=== PATIENT | male | born 1990 | race Caucasian/White ===

== ENCOUNTER 2017-05-14 20:49 | Emergency (ER) | payer MEDICAID ==
--- NOTE | 2017-05-14 21:27 | EDM.PDOC ---
ED HPI GENERAL MEDICAL PROBLEM - General Chief Complaint: Skin Complaint Stated Complaint: BOIL RIGHT THIGH Time Seen by Provider: 05/14/17 21:10 Source of Information: Reports: Patient History Limitations: Reports: No Limitations - History of Present Illness INITIAL COMMENTS - FREE TEXT/NARRATIVE: 26-year-old male who has a history of cutaneous MRSA has developed a painful reddened area on his right lateral upper thigh over the past 48 hours. No fevers or chills. No other complaints. Onset: Gradual (over the past 48 hours) Severity: Mild Associated Symptoms: Reports: No Other Symptoms Leg Pain Score (Numeric/FACES): 8 - Related Data Allergies Allergy/AdvReac Type Severity Reaction Status Date / Time Penicillins Allergy Difficulty Verified 05/14/17 21:20 Breathing Home Meds: Home Meds NK [No Known Home Meds] 05/14/17 [History] Past Medical History - Past Surgical History HEENT Surgical History: Reports: Oral Surgery Social & Family History - Tobacco Use Smoking Status *Q: Current Every Day Smoker Years of Tobacco use: 9 Packs/Tins Daily: 1 - Caffeine Use Caffeine Use: Reports: Coffee - Recreational Drug Use Recreational Drug Use: No ED ROS GENERAL - Review of Systems Review Of Systems: See Below Constitutional: Denies: Fever, Chills Respiratory: Denies: Shortness of Breath Cardiovascular: Denies: Chest Pain GI/Abdominal: Denies: Nausea, Vomiting Neurological: Reports: No Symptoms ED EXAM, SKIN/RASH Exam: See Below Exam Limited By: No Limitations General Appearance: Alert, No Apparent Distress Respiratory/Chest: No Respiratory Distress Extremities: Other (Exam is otherwise limited to the right lateral hip and lateral thigh. The patient has a slightly raised area, 3 cm across that is erythematous and tender to palpation and slightly warm. No significant fluctuance.) Course - Vital Signs Last Recorded V/S: Last Vital Signs Temp 97.2 F 05/14/17 21:24 Pulse 90 05/14/17 21:24 Resp 16 05/14/17 21:24 BP 146/82 H 05/14/17 21:24 Pulse Ox 96 05/14/17 21:24 - Re-Assessments/Exams Free Text/Narrative Re-Assessment/Exam: 05/14/17 21:26 This patient is developing a subcutaneous infection with overlying cellulitis. I don't feel it is at the point that it needs I&D and the patient wants to avoid it if possible. He'll be started on Bactrim DS twice daily, encouraged to apply warm compresses and return if worsening despite treatment. Anti- inflammatory such as ibuprofen or naproxen should help. Departure - Departure Time of Disposition: 21:54 Disposition: Home, Self-Care 01 Condition: Good Clinical Impression: Abscess - Discharge Information Instructions: Skin Abscess, [id number] Referrals: PCP,None [Primary Care Provider] - Forms: ED Department Discharge Care Plan Goals: Apply warm compresses to the area for the next couple of days and take the antibiotic every 12 hours for at least 7 days. Ibuprofen or naproxen should help as well, and return if worsening despite treatment.
== END 2017-05-14 21:54 | disposition home or self-care (01) ==
LOC: JP.ED 20:49
DX: L02.415 Cutaneous abscess of right lower limb (principal); F17.210 Nicotine dependence, cigarettes, uncomplicated; Z88.0 Allergy status to penicillin
CPT/HCPCS: 99283

== ENCOUNTER 2017-05-16 17:34 | Emergency (ER) | payer SELFPAY ==
[2017-05-16] MEDS ORDERED: HYDROmorphone 0.5 MG/0.5 ML Syringe IM ONE (18:22)
[2017-05-16] MEDS ORDERED: Lidocaine 1% 20 ML MDV INJECT ONE (18:23)
--- NOTE | 2017-05-16 18:26 | EDM.PDOC ---
ED HPI GENERAL MEDICAL PROBLEM - General Chief Complaint: Skin Complaint Stated Complaint: PAIN IN GROIN AREA Time Seen by Provider: 05/16/17 18:24 Source of Information: Reports: Patient History Limitations: Reports: No Limitations - History of Present Illness INITIAL COMMENTS - FREE TEXT/NARRATIVE: Pt arrived with increased redness and it appears to be coming to a head. Onset: Gradual, Other (Pt was seen earlier wby Dr Vogt. ) Duration: Hour(s): Location: Reports: Lower Extremity, Right Associated Symptoms: Reports: No Other Symptoms, Other (Pt is becoming quite uncomfortable with the increased inflamation. ) - Related Data Allergies Allergy/AdvReac Type Severity Reaction Status Date / Time Penicillins Allergy Difficulty Verified 05/14/17 21:20 Breathing Home Meds: Home Meds Sulfamethoxazole/Trimethoprim [Septra DS] 1 tab PO BID 05/16/17 [History] Past Medical History - Past Surgical History HEENT Surgical History: Reports: Oral Surgery Social & Family History - Tobacco Use Smoking Status *Q: Current Every Day Smoker Years of Tobacco use: 8 Packs/Tins Daily: 1 - Caffeine Use Caffeine Use: Reports: Coffee - Recreational Drug Use Recreational Drug Use: No ED ROS GENERAL - Review of Systems Review Of Systems: See Below Constitutional: Reports: Other ( The area of redness has increased in size. He has been on bactrim for the past few days/ ) HEENT: Reports: No Symptoms Respiratory: Reports: No Symptoms Cardiovascular: Reports: No Symptoms Endocrine: Reports: No Symptoms GI/Abdominal: Reports: No Symptoms : Reports: No Symptoms Musculoskeletal: Reports: Other (pain and redness in the rt thigh. ) ED EXAM, SKIN/RASH Exam: See Below Text/Narrative:: Pt has increased pain and redness in the rt lateral thigh. The area of redness has increased significantly. Exam Limited By: No Limitations General Appearance: Alert, Moderate Distress Ears: Normal TMs Nose: Normal Inspection Throat/Mouth: Normal Inspection Neck: Normal Inspection Respiratory/Chest: No Respiratory Distress Cardiovascular: Regular Rate, Rhythm Extremities: Other (Pt has a 6 inch in diameter area of redness that is soft in the center and looks like it needs to be drained. ) Neurological: Alert, Oriented, Normal Cognition Course - Vital Signs Last Recorded V/S: Last Vital Signs Temp 36.1 C 05/16/17 17:57 Pulse 95 05/16/17 17:57 Resp 17 05/16/17 17:57 BP 146/76 H 05/16/17 17:57 Pulse Ox 98 05/16/17 17:57 - Orders/Labs/Meds Meds: Medications Discontinued Medications Generic Name Dose Route Start Last Admin Trade Name Tanisha PRN Reason Stop Dose Admin Bacitracin 1 dose 05/16/17 18:48 05/16/17 18:57 Bacitracin Oint 1 Gm TOP 05/16/17 18:49 1 dose ONETIME ONE Administration Ceftriaxone Sodium 1 gm/ 0 gm 05/16/17 18:48 05/16/17 18:59 Lidocaine HCl 2.1 ml IM 05/16/17 18:49 1 inj ONETIME ONE Administration Hydromorphone HCl 0.5 mg 05/16/17 18:22 05/16/17 18:29 Dilaudid IM 05/16/17 18:23 0.5 mg ONETIME ONE Administration Ibuprofen 600 mg 05/16/17 18:51 05/16/17 18:59 Motrin PO 05/16/17 18:52 600 mg ONETIME ONE Administration Lidocaine HCl 20 ml 05/16/17 18:23 05/16/17 18:29 Xylocaine 1% INJECT 05/16/17 18:24 20 ml ONETIME ONE Administration - Re-Assessments/Exams Free Text/Narrative Re-Assessment/Exam: 05/16/17 18:55 pt was given dilaudid .5 im and the area was infiltrated with lidocaine. The center that was soft was opened and a large amount of pus was expressed. The drainage was cultured. He felt like some of the pressure was relieved. A 1/4 inch wick was placed and the wound was covered with bacatracin. a dressing was applied over it. He will return tomorrow for another injection of rocephen. Departure - Departure Time of Disposition: 18:57 Disposition: Home, Self-Care 01 Condition: Fair Clinical Impression: Encounter for drainage of abscess - Discharge Information Instructions: Skin Abscess, [id number] Referrals: PCP,None [Primary Care Provider] - Forms: ED Department Discharge Care Plan Goals: rtc tomorrow for rocephen 1 gm im, the dressing will be changed. If it looks better will then continue with the bactrim and await the culture results, If doing well he can have the wick removed and he can start soaking in a tub and have it scrubbed with soapy solution. bacatracin can be applied to the wound. motrin 600mg qid for pain.
[2017-05-16] MEDS ORDERED: Bacitracin Oint 1 GM U/D Packet TOP ONE (18:48)
[2017-05-16] MEDS ORDERED: cefTRIAXone 1 GM, Lidocaine 1% 2.1 ML IM ONE ×2 (18:48)
[2017-05-16] MEDS ORDERED: Ibuprofen 600 MG Tab PO ONE (18:51)
== END 2017-05-16 19:09 | disposition home or self-care (01) ==
LOC: JP.ED 17:34
DX: L03.115 Cellulitis of right lower limb (principal); F17.210 Nicotine dependence, cigarettes, uncomplicated; Z88.0 Allergy status to penicillin
CPT/HCPCS: 87070; 87077; 87186; 87205; 99283; A9270; J0696; J1170

== ENCOUNTER 2017-06-16 18:52 | Emergency (ER) | payer MEDICAID ==
[2017-06-16] MEDS ORDERED: LORazepam 0.5 MG Tab PO ONE (19:50)
--- NOTE | 2017-06-16 19:55 | EDM.PDOC ---
ED HPI GENERAL MEDICAL PROBLEM - General Chief Complaint: Respiratory Problem Stated Complaint: SHORTNESS OF BREATH, FEELS INTOXICATED Time Seen by Provider: 06/16/17 19:40 Source of Information: Reports: Patient, Old Records, RN History Limitations: Reports: No Limitations - History of Present Illness INITIAL COMMENTS - FREE TEXT/NARRATIVE: 27 yo male presents with a complaint of mild light-headedness and mild SOB most of the day today. Has no hx of the same. Is a heavy smoker. No calf pain or LE edema. Thinks someone slipped him a drug? Has not been to the clinic. No cough or wheezing. No vomiting or diarrhea. Onset: Today Onset Date: 06/16/17 Onset Time: 11:00 Duration: Hour(s):, Constant Location: Reports: Head, Chest Quality: Reports: Other (no pain) Severity: Mild Improves with: Reports: None Worsens with: Reports: None Context: Reports: Other (uncertain) Associated Symptoms: Reports: Shortness of Breath. Denies: Fever/Chills, Nausea /Vomiting Treatments KNOT CUTTER: Reports: Other (see below) (none) Lower Back Pain Score (Numeric/FACES): 9 - Related Data Allergies Allergy/AdvReac Type Severity Reaction Status Date / Time Penicillins Allergy Difficulty Verified 06/16/17 19:45 Breathing Home Meds: Home Meds NK [No Known Home Meds] 06/16/17 [History] Past Medical History - Past Surgical History HEENT Surgical History: Reports: Oral Surgery Social & Family History - Caffeine Use Caffeine Use: Reports: Coffee ED ROS GENERAL - Review of Systems Review Of Systems: See Below Constitutional: Reports: No Symptoms HEENT: Reports: No Symptoms Respiratory: Reports: Shortness of Breath. Denies: Wheezing, Pleuritic Chest Pain, Cough, Sputum, Hemoptysis Cardiovascular: Reports: Lightheadedness Endocrine: Reports: No Symptoms GI/Abdominal: Reports: No Symptoms : Reports: No Symptoms Musculoskeletal: Reports: No Symptoms Skin: Reports: No Symptoms Neurological: Reports: No Symptoms Psychiatric: Reports: No Symptoms ED EXAM, GENERAL - Physical Exam Exam: See Below Exam Limited By: No Limitations General Appearance: Alert, WD/WN, No Apparent Distress Eye Exam: Bilateral Eye: Normal Inspection Ears: Normal External Exam, Normal Canal, Hearing Grossly Normal, Normal TMs Ear Exam: Bilateral Ear: Auricle Normal, Canal Normal, TM normal Nose: Normal Inspection, Normal Mucosa, No Blood Throat/Mouth: Normal Inspection, Normal Lips, Normal Oropharynx, Normal Voice, No Airway Compromise Head: Atraumatic, Normocephalic Neck: Normal Inspection, Supple, Non-Tender Respiratory/Chest: No Respiratory Distress, Lungs Clear, Normal Breath Sounds, No Accessory Muscle Use Cardiovascular: Regular Rate, Rhythm, No Edema GI/Abdominal: Normal Bowel Sounds, Soft, Non-Tender, No Distention Back Exam: Normal Inspection. No: CVA Tenderness (R), CVA Tenderness (L) Extremities: Normal Inspection, Normal Range of Motion, Non-Tender, No Pedal Edema Neurological: Alert, Oriented, CN II-XII Intact, Normal Cognition, Normal Reflexes, No Motor/Sensory Deficits Psychiatric: Normal Affect, Normal Mood, Anxious (mild) Skin Exam: Warm, Dry, Intact, Normal Color, No Rash Lymphatic: No Adenopathy Course - Vital Signs Text/Narrative:: Feeling mostly back to normal after our dose of lorazepam. Last Recorded V/S: Last Vital Signs Temp 35.7 C 06/16/17 19:58 Pulse 79 06/16/17 19:58 Resp 16 06/16/17 19:58 BP 154/88 H 06/16/17 19:58 Pulse Ox 99 06/16/17 19:58 - Orders/Labs/Meds Orders: Active Orders 24 hr Category Date Time Status DRUG SCREEN, URINE [URCHEM] Stat Lab 06/16/17 20:10 Ordered Labs: Laboratory Tests 06/16/17 Range/Units 20:10 Urine Opiates Screen Negative (NEGATIVE) Ur Oxycodone Screen Negative (NEGATIVE) Urine Methadone Screen Negative (NEGATIVE) Ur Propoxyphene Screen Negative (NEGATIVE) Ur Barbiturates Screen Negative (NEGATIVE) Ur Tricyclics Screen Negative (NEGATIVE) Ur Phencyclidine Scrn Negative (NEGATIVE) Ur Amphetamine Screen Negative (NEGATIVE) U Methamphetamines Scrn Negative (NEGATIVE) Urine MDMA Screen Negative (NEGATIVE) U Benzodiazepines Scrn Negative (NEGATIVE) U Cocaine Metab Screen Negative (NEGATIVE) U Marijuana (THC) Screen Negative (NEGATIVE) Meds: Medications Discontinued Medications Generic Name Dose Route Start Last Admin Trade Name Freq PRN Reason Stop Dose Admin Lorazepam 0.5 mg 06/16/17 19:50 06/16/17 20:23 Ativan PO 06/16/17 19:51 0.5 mg ONETIME ONE Administration Departure - Departure Time of Disposition: 20:53 Disposition: Home, Self-Care 01 Condition: Good Clinical Impression: Anxiety - Discharge Information Referrals: PCP,None [Primary Care Provider] - Forms: ED Department Discharge - My Orders Last 24 Hours: My Active Orders 06/16/17 20:10 DRUG SCREEN, URINE [URCHEM] Stat - Assessment/Plan Last 24 Hours: My Active Orders 06/16/17 20:10 DRUG SCREEN, URINE [URCHEM] Stat
== END 2017-06-16 21:03 | disposition home or self-care (01) ==
LOC: JP.ED 18:52
DX: F41.9 Anxiety disorder, unspecified (principal); Z88.0 Allergy status to penicillin
CPT/HCPCS: 80305; 99285; A9270